=== PATIENT | female | born 1945 | race Caucasian/White ===

== ENCOUNTER → 2023-06-18 10:35 | Outpatient (REF) | payer OTHER, SELFPAY | LOC: HWRAD 10:35 | PROVIDERS: ATTENDING PHYSICIAN Internal Medicine Gastroenterology; FAMILY PHYSICIAN Internal Medicine | DX: R93.5 Abnormal findings on diagnostic imaging of other abdominal regions, including retroperitoneum (principal) | CPT/HCPCS: 74177; Q9967 ==

== ENCOUNTER 2023-07-20 06:14 | Day surgery (SDC) | payer OTHER, SELFPAY ==
[2023-07-20 07:10] VITALS: BMI 22.7
[2023-07-20 07:15] VITALS: BP 144/64
[2023-07-20 07:25] VITALS: BMI 22.7
[2023-07-20 07:37] LABS: Glucose - Point of Care 108 mg/dl (70-99)
[2023-07-20 09:30] VITALS: BP 119/58
[2023-07-20 09:59] VITALS: BP 139/57
== END 2023-07-20 10:17 | disposition home or self-care (01) ==
LOC: SDS 06:14
PROVIDERS: ATTENDING PHYSICIAN Internal Medicine Gastroenterology
DX: Z12.11 Encounter for screening for malignant neoplasm of colon (principal); D12.3 Benign neoplasm of transverse colon; K63.89 Other specified diseases of intestine; K64.8 Other hemorrhoids; K92.1 Melena; K29.70 Gastritis, unspecified, without bleeding; B96.81 Helicobacter pylori [H. pylori] as the cause of diseases classified elsewhere; K21.00 Gastro-esophageal reflux disease with esophagitis, without bleeding; K22.89 Other specified disease of esophagus; K26.9 Duodenal ulcer, unspecified as acute or chronic, without hemorrhage or perforation; K44.9 Diaphragmatic hernia without obstruction or gangrene; K31.89 Other diseases of stomach and duodenum; Z85.038 Personal history of other malignant neoplasm of large intestine; Z98.0 Intestinal bypass and anastomosis status; Z79.01 Long term (current) use of anticoagulants
CPT/HCPCS: 45385; 45380; 43239; 88305; 82962; 88342

== ENCOUNTER → 2023-10-07 07:38 | Outpatient (REF) | payer OTHER, SELFPAY ==
[2023-10-08 12:31] LABS: H. pylori Breath Test Negative (Negative)
[2023-10-09 01:23] LABS: H. pylori Antigen, Fecal Negative (Negative)
== END ==
LOC: REG 07:38
PROVIDERS: ATTENDING PHYSICIAN Internal Medicine Gastroenterology; FAMILY PHYSICIAN Internal Medicine
DX: A04.8 Other specified bacterial intestinal infections (principal)
CPT/HCPCS: 83013; 87338

== ENCOUNTER → 2024-03-09 09:37 | Outpatient (REF) | payer OTHER, SELFPAY | LOC: HWRAD 09:37 | PROVIDERS: ATTENDING PHYSICIAN Internal Medicine | DX: R63.4 Abnormal weight loss (principal) | CPT/HCPCS: 71046 ==

== ENCOUNTER → 2024-04-04 09:38 | Outpatient (REF) | payer OTHER, SELFPAY | LOC: HWWDC 09:38 | PROVIDERS: ATTENDING PHYSICIAN Internal Medicine | DX: Z12.31 Encounter for screening mammogram for malignant neoplasm of breast (principal) | CPT/HCPCS: 77063; 77067 ==

== ENCOUNTER 2024-09-22 13:24 | Inpatient (IN) | payer OTHER, SELFPAY ==
[2024-09-22] VITALS (12 sets, daily range): BP systolic 108–156; BP diastolic 48–98; BMI 20.3
--- NOTE | 2024-09-22 09:07 | ED.GENMED ---
History of Present Illness
General
Chief Complaint: Dizziness
Source: patient and records
Exam Limitations: none
Time Seen by Provider: 09/22/24 08:45
Nursing documentation reviewed up to this point in time: agreed with
History of Present Illness
History of Present Illness:
79-year-old female A-fib on warfarin diabetes presents with dizziness nausea vomiting worse with sitting forward onset last night improved but worsened again today requiring EMS transport no chest pain no shortness of breath no fever or chills
symptoms are better when she is still worse with sitting forward no headache no slurred speech no dark or bloody stools non-smoker nondrinker drinks 3 cups of caffeine a day has had vertigo before but states this is different, gets recurrent upper
respiratory sinus infections
Past History
Past History
ED Past Medical History: Arrthythmia, CAD, Cancer (colon), HTN, Hypercholesterolemia, NIDDM, NH and Other (VT with AICD)
ED Past Surgical History: Cardiac (Stents, Pacer/defibulator)
Social History
Tobacco: Former smoker
Alcohol: None
Drug: None
Personal:
Living: with family
Employment: Retired
Review of Systems
Review of Systems
All Other Systems: Not applicable
Constitutional: Denies fever or fatigue
EENT: Reports other (Sinus congestion)
Respiratory: Reports no symptoms
Cardiac: Reports no symptoms
ABD/GI: Reports nausea and vomiting
: Reports no symptoms
Neurological: Reports dizzy; Denies headache or weakness
Endocrine: Reports no symptoms
Phy Exam
Physical Exam
Physical Exam:
Physical Exam
General: 79-year-old female mild distress clear mental state
Neck: Clear rhinorrhea
Heart: Irregular.
Lungs: no acute respiratory distress. clear bilaterally
Abdomen: Nontender
Neuro: alert and oriented. no focal neurological deficits 2 beats of horizontal nystagmus
Skin: no rash
Psychiatric: well kept. interactive and cooperative
Extremities: no edema.
Course
Orders/Labs/Results
Orders:
Orders
09/22/24 08:45
EKG [Electrocardiogram (*1)] Urgent
Reason for Study: Vertigo / Dizzy
EKG- Treatment ONCE
09/22/24 09:00
CT Head W/o Iv Contrast Urgent
Comment:
Reason For Exam: dizzy vomitign warfarin
0.9% Sodium Chloride 1000 ml [Nss] 1,000 ml IV BOLUS
Ondansetron Injectable [Zofran] 4 mg IV NOW STA
09/22/24 09:01
Basic Metabolic Panel Urgent
Complete Blood Count/With Diff Urgent
PT/INR [Prothrombin Time] Urgent
09/22/24 11:10
Dexamethasone Sod Phosphate [Decadron] 10 mg IV NOW STA
09/22/24 11:11
Amoxicillin [Amoxil] 500 mg PO NOW STA
09/22/24 12:21
0.9% Sodium Chloride 1000 ml [Nss] 1,000 ml IV BOLUS
diazePAM [Valium Injection] 5 mg IV NOW STA
09/22/24 12:22
Physical Therapy Consult [Pt Eval And Treat] Urgent
Activity Level: Out of Bed-Early Mobility
Abnormal Lab Results
09/22/24
09:01
MPV 11.8 H fL
(7.4-10.4)
Absolute Neuts (auto) 7.0 H 10^3/uL
(1.4-6.5)
Absolute Monos (auto) 1.1 H 10^3/uL
(0.1-0.6)
Lymphocytes % 17.4 L %
(20.5-51.1)
Monocytes % 10.3 H %
(1.7-9.3)
PT 19.7 H Sec
(11.4-14.6)
BUN 27 H mg/dl
(7-17)
Glucose 239 H mg/dl
(70-99)
09/22/24 09:01
09/22/24 09:01
Vital Signs
Initial and Last Documented VS:
Initial Vital Signs
BP
156/82
09/22/24 08:43
Last Documented Vital Signs
Temp Pulse Resp BP Pulse Ox
97.7 F 102 24 129/69 94
09/22/24 08:45 09/22/24 10:00 09/22/24 10:00 09/22/24 09:00 09/22/24 10:00
MDM/Problems Addressed
Differential Diagnosis Includes:
Vertigo intracerebral hemorrhage electrolyte abnormality arrhythmia glucose abnormality
MDM/Problems Addressed:
Dizziness
Chronic conditions affecting care: DM, HTN and Arrhythmia
Acute Exacerbation and/or Progression of Chronic Illness: DM, HTN and Arrhythmia
*EKG
Interpretation: abnormal
Comparison EKG: no comparison EKG present
Rate: normal
Rhythm: a-fib
[place]: normal axis
Ischemia: non-specific ST changes
*Procurement Engineer Interpretation
Rate: normal
Interpretation: normal
Heart Rate: 88
Rhythm: a-fib
*Critical Care Note
Total Time (30-74mins, 75-104mins- exclusive of procedures): Not Applicable
Update Note
Update Note:
Update labs noted, BUN up and glucose are up, being treated with IV fluids patient feeling a bit better but still symptomatic only when sitting upright, CT noted, will start on antibiotics short burst of steroids, give number for ENT suspect this
could be sinusitis related dizziness
1220 patient feeling a bit better though nurse reports when she stood up to walk she was very unsteady, symptomatic, will try Valium repeat dose of fluids have PT evaluate if she may need to be admitted
ED Attending Note
-
Portions of this chart may have been created with voice recognition software.� Occasional wrong word or��sound alike� substitutions may have occurred due to the inherent limitations of voice recognition software.
Discharge Plan
Departure
Patient Disposition: Admit
Date of Disposition: 09/22/24
Time of Disposition: 12:25
Admit to: Telemetry
Presentation/result/management discussed w/ accepting MD/DO: Hospitalist
Patient with high blood pressure during this ER visit?: No
Condition: Fair
Discharge Problem:
Intractable vertigo
Prescriptions:
No Action
warfarin [Jantoven] 5 MG tablet
5 mg PO QPM
ezetimibe-simvastatin [Vytorin 10-80] 1 EACH tablet
1 ea PO HS
calcium carbonate [calcium] 500 MG tablet
630 mg PO DAILY
metformin 500 MG tablet
500 mg PO BID@0800,1200
sotalol 80 MG tablet
160 mg PO BID
isosorbide mononitrate 30 MG tablet extended release 24 hr
30 mg PO DAILY
aspirin 81 MG tablet,delayed release (DR/EC)
81 mg PO DAILY
metformin 1,000 MG tablet
1,000 mg PO DAILY@1730
coenzyme O32-yzoustf E 1 CAP capsule
1 cap PO DAILY
hydrochlorothiazide 12.5 MG tablet
25 mg PO DAILY
omega 3-sde-hjs-fish oil [Fish Oil] 1 EACH capsule
1 ea PO BID
multivitamin with folic acid [Tab-A-Mason] 1 TABLET tablet
1 tab PO DAILY
metoprolol succinate 25 MG tablet extended release 24 hr
100 mg PO DAILY@1730
irbesartan 300 MG tablet
300 mg PO DAILY
alpha lipoic acid 300 MG capsule
600 mg PO BID
glimepiride 2 mg Tablet
2 mg PO DAILY
Jardiance 25 mg Tablet
25 mg PO DAILY
polyethylene glycol 3350 [Miralax] 17 gram/dose Powder
DIRECTED
Suflave 178.7-7.3-0.5 gram Recon Soln
PO DIRECTED
simethicone 125 mg Tablet
PO DIRECTED
Referrals:
Desire Lange MD [Family Provider] -
Interventions
Interventions:
*General Assessment Last Done: 09/22/24 08:45
*Neglect/Abuse Screening Last Done: 09/22/24 08:45
*ED COVID-19 Vaccine History Last Done: 09/22/24 08:55
ED- Neurological Assessment Last Done: 09/22/24 08:56
ED- Cardiac Assessment Last Done: 09/22/24 08:56
ED Swallowing Screen Last Done: 09/22/24 11:15
Discharge Date and Time
Print Language: STATELESS
[2024-09-22 09:15] LABS: % Basophils 1.5 % (0-2); % Eosinophils 1.8 % (0-6); % Immature Granulocytes 0.4 % (0-0.5); % Lymphocytes 17.4 % (20.5-51.1); % Monocytes 10.3 % (1.7-9.3); % Neutrophils 68.6 % (42.2-75.2); Absolute Basophils 0.2 10^3/uL (0-0.2); Absolute Eosinophils 0.2 10^3/uL (0-0.7); Absolute Lymphocytes 1.8 10^3/uL (1.2-3.4); Absolute Monocytes 1.1 10^3/uL (0.1-0.6); Hematocrit 44.2 % (37.0-47.0); Hemoglobin 14.6 g/dL (12.0-16.0); Mean Corpuscular Hgb 29.8 pg (27.0-31.0); Mean Corpuscular Volume 90.2 fL (81.0-99.0); Mean Platelet Volume 11.8 fL (7.4-10.4); Nucleated Red Blood Cells % 0 %; Platelet Count 197 10^3/uL (130-400); Red Cell Dist. Width 12.5 % (11.5-14.5); White Blood Cell Count 10.3 10^3/uL (4.8-10.8)
[2024-09-22] MEDS: NSS 1000 IV ×2 (09:17→12:35)
[2024-09-22] MEDS: ZOFRAN 4 MG IV (09:18)
[2024-09-22 09:27] LABS: INR 1.65; PT 19.7 Sec (11.4-14.6)
[2024-09-22 09:31] LABS: Blood Urea Nitrogen 27 mg/dl (7-17); Calcium 9.9 mg/dl (8.4-10.2); Carbon Dioxide 28 mmol/L (22-30); Chloride 107 mmol/L (98-107); Estimated Creatinine Clearance 65 ml/min; Glucose 239 mg/dl (70-99); Sodium 142 mmol/L (135-145); eGFR > 60.00
[2024-09-22] MEDS: DECADRON 10 MG IV (11:26)
[2024-09-22] MEDS: AMOXIL 500 MG PO ×2 (11:26→17:40)
--- NOTE | 2024-09-22 12:26 | HPS.HSE ---
Family Physician
-
Family Physician: Desire Lange
Chief Complaint
-
vertigo
History of Present Illness
79-year-old female A-fib on warfarin diabetes, HTN presents with dizziness nausea vomiting since this morning. she experience this symptoms two nights ago, which resolved its own. this morning, she was not able to get up. it felt like the room was
spinning. she was not able to walk or sit. she vomited once. stated chronic congestion and chronic tinnitus. denied BENAVIDES. denied fever, chills, chest pain, sob. denied abdominal pain,n,v,d. denied dysuria or hematuria.
head CT with no acute findings. Patient received amoxicillin, dexamethasone, Valium, #, Zofran in ER. Admitted for further management.
Medical History
Past Medical History
Past Medical History: Reports Other
Additional Past Medical History:
Cardiomyopathy, ventricular tachycardia, hypertension, HI, dyslipidemia, coronary artery disease, TIA, colon cancer, type 2 diabetes, enlarged thyroid gland, paroxysmal A-fib
Past Surgical History: Reports Other
Additional Past Surgical History:
Collectomy
tonsillectomy
appendectomy
Social History
Tobacco: Non-smoker
Alcohol: None
Drug: None
Personal:
Living: With Family
Family History
Family History: Not pertinent
Allergies / Home Medications
Allergies reflects when Allergies were last updated in [employer].
Home Medications with original date entered in [employer]
Allergy/Medication List:
Allergies
Allergy/AdvReac Type Severity Reaction Status Date / Time
niacin [Niacin] Allergy Rash Verified 09/22/24 08:55
amlodipine AdvReac Shortness Verified 09/22/24 08:55
of Breath
amlodipine besylate AdvReac Shortness Verified 09/22/24 08:55
[From [facility]] of Breath
Home Medications
ezetimibe 10 mg-simvastatin 80 mg tablet (Vytorin) 1 ea PO HS 09/22/10
warfarin 5 mg tablet (Jantoven) 5 mg PO QPM 09/22/10
calcium carbonate (calcium) 630 mg PO DAILY 07/29/14
aspirin 81 mg tablet,delayed release 81 mg PO DAILY 04/14/18
coenzyme G01-scacvuu E 100 mg-100 unit capsule 1 cap PO DAILY 04/14/18
hydrochlorothiazide 12.5 mg tablet 25 mg PO DAILY 04/14/18
isosorbide mononitrate 30 mg tablet,extended release 24 hr 30 mg PO DAILY 04/14/18
metformin 1,000 mg tablet 1,000 mg PO DAILY@1730 04/14/18
metformin 500 mg tablet 500 mg PO BID@0800,1200 04/14/18
multivitamin with folic acid 400 mcg tablet (Tab-A-Mason) 1 tab PO DAILY 04/14/18
omega 7-mvc-xup-fish oil 300 mg-1,000 mg capsule (Fish Oil) 1 ea PO BID 04/14/18
sotalol 80 mg tablet 160 mg PO BID 04/14/18
alpha lipoic acid 300 mg capsule 600 mg PO BID 02/13/20
irbesartan 300 mg tablet 300 mg PO DAILY 02/13/20
metoprolol succinate 25 mg tablet,extended release 24 hr 100 mg PO DAILY@1730 02/13/20
empagliflozin 25 mg tablet (Jardiance) 25 mg PO DAILY 07/20/23
glimepiride 2 mg tablet 2 mg PO DAILY 07/20/23
peg 3350-sod sulf,pcpfs-jjl-yiv 178.7-7.3-0.5-1.12-0.9 gram oral soln (Suflave) ml PO DIRECTED 07/20/23
polyethylene glycol 3350 17 gram/dose oral powder (Miralax) g DIRECTED 07/20/23
simethicone 125 mg tablet mg PO DIRECTED 07/20/23
Review of Systems
-
Constitutional: Reports No Symptoms
EENT: Reports Other (congestion)
Respiratory: Reports No Symptoms
Cardiac: Reports No Symptoms
Abdomen/GI: Reports No Symptoms
: Reports No Symptoms
Musculoskeletal: Reports No Symptoms
Skin: Reports No Symptoms
Neurological: Reports No Symptoms
Endocrine: Reports No Symptoms
Hematologic/Lymphatic: Reports No Symptoms
Psych: Reports No Symptoms
Physical Exam
Vital Signs
Vital Signs
Temp Pulse Resp BP Pulse Ox
97.7 F 102 24 129/69 94
09/22/24 08:45 09/22/24 10:00 09/22/24 10:00 09/22/24 09:00 09/22/24 10:00
Physical Exam
General: Well Developed, Well Nourished and No Apparent Distress
HEENT: NormoCephalic, Moist mucous membranes and Atraumatic
Respiratory: Clear
Cardiac: S1/S2 and Regular Rhythm; No Murmur or Rub
GI: Soft, Non Tender, Non Distended and Normal Bowel Sounds; No Organomegaly
Rectal: Deferred by Provider
Musculoskeletal: No Clubbing, No Cyanosis and No Edema
Skin: No Rash
Neuro: AO x 3 and Nonfocal/grossly intact
Psych: Calm
Laboratory Results
-
09/22/24 09:01
09/22/24 09:01
Laboratory Results
PT 19.7 Sec (11.4-14.6) H 09/22/24 09:01
INR 1.65 09/22/24 09:01
Total Bilirubin Cancelled 09/22/24 09:01
AST Cancelled 09/22/24 09:01
ALT Cancelled 09/22/24 09:01
Alkaline Phosphatase Cancelled 09/22/24 09:01
Data Reviewed
-
CT Scan: Report Reviewed by me
Lab Data: Labs Reviewed by me
Impression/Plan
-
#intractable vertigo likely BPPV vs vestibular neuritis
#acute on chronic sinusitis
-Head CT with the impression of No acute intracranial abnormality.Severe, chronic appearing paranasal sinus disease.
-meclizine prn
-nasal spray
-amoxicillin
-PT/OT
#atrial fib
-EKG with atrial fib
- Metoprolol, sotalol continue
- Warfarin continue
# GERD
- Pantoprazole continued
#tyoe2 DM
- Repaglinide, GERD continued
-Metformin
- Sliding scale
- Carb controlled diet
# Hyperlipidemia
- Zetia, simvastatin continue
# Essential hyper
-irbesartan, HCTZ, isosorbide continue
# DVT prophylaxis
- Warfarin continued
# CODE STATUS
- Full code
[2024-09-22] MEDS: VALIUM INJECTION 5 MG IV (12:29)
--- NOTE | 2024-09-22 13:15 | W.PN.UPDATE ---
Update Note
Progress Note Update
This is an addendum to the H&P written by Giselle Gerber on 09/22/2024.� Patient seen and examined independently with DEMURRAGE MAN.
79-year-old female past medical history of paroxysmal atrial fibrillation on Coumadin, ventricular tachycardia status post ICD, type 2 diabetes, hypertension, CAD status post stents in 1995, TIA, hyperlipidemia, chronic tinnitus in the ears
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
the past 2 days.� She works in daycare.
Vital signs normal.� Labs unremarkable apart from blood sugar of 239.� EKG shows atrial fibrillation with occasional PVCs.� QTc 505.� CT head shows no acute abnormality apart from severe chronic appearing paranasal sinus disease.
Patient given IV fluids and Zofran and diazepam.� Patient was given amoxicillin and dexamethasone in ER for sinusitis.�
Patient with likely viral induced vestibular neuritis versus BPPV.� Check orthostatic vital signs.� Vestibular therapy.� As needed meclizine.� Continue amoxicillin and nasal spray for acute on chronic sinusitis.
[2024-09-22 14:34] LABS: Glucose - Point of Care 153 mg/dl (70-99)
[2024-09-22 16:53] LABS: Glucose - Point of Care 188 mg/dl (70-99)
[2024-09-22] MEDS: COUMADIN 5 MG PO (17:41)
[2024-09-22] MEDS: NOVOLOG FLEXPEN-MODERATE RESISTANCE 1 UNITS SC (17:47)
[2024-09-22] MEDS: TOPROL XL 100 MG PO (17:51)
[2024-09-22 20:31] LABS: Glucose - Point of Care 247 mg/dl (70-99)
[2024-09-22] MEDS: BETAPACE 160 MG PO (21:12)
[2024-09-22] MEDS: LIPITOR 40 MG PO (22:52)
[2024-09-22] MEDS: ZETIA 10 MG PO (22:52)
[2024-09-23] MEDS: AMOXIL 500 MG PO ×2 (00:01→08:46)
[2024-09-23 03:17] VITALS: BP 132/55
[2024-09-23 07:05] VITALS: BP 140/54
[2024-09-23 07:05] LABS: Glucose - Point of Care 143 mg/dl (70-99)
[2024-09-23 07:41] LABS: Glucose - Point of Care 131 mg/dl (70-99)
[2024-09-23 07:47] LABS: INR 2.12; PT 23.9 Sec (11.4-14.6)
--- NOTE | 2024-09-23 07:59 | W.PN.HOSP.TC ---
Today's Communication/Plan
-
Discharge home today
Assessment / Plan
Assessment / Plan
Impression:
79-year-old female A-fib on warfarin, diabetes, HTN presents with dizziness nausea vomiting since this morning. she experience this symptoms two nights ago, which resolved its own. this morning, she was not able to get up. it felt like the room was
spinning. she was not able to walk or sit. she vomited once. stated chronic congestion and chronic tinnitus. denied BENAVIDES. denied fever, chills, chest pain, sob. denied abdominal pain,n,v,d. denied dysuria or hematuria. head CT with no acute findings.
Patient received amoxicillin, dexamethasone, Valium, Zofran in ER. Admitted for further management.
Seen by physical therapy and underwent vestibular therapy with help of her dizziness.
Will be discharged home with outpatient vestibular
Assessment/plan:
Dizziness.
Possible benign positional vertigo.
Could be secondary to labyrinthitis.
Continue meclizine as needed.
If no improvement consider MRI brain.
PT/OT, patient responded well to vestibular treatment,
For outpatient vestibular therapy.
Acute on chronic sinusitis
-Head CT with the impression of No acute intracranial abnormality.Severe, chronic appearing paranasal sinus disease.
-Continue nasal spray
-amoxicillin
Permanent A-fib
-EKG with atrial fib
- Metoprolol, sotalol continue
- Warfarin continue
GERD
- Pantoprazole continued
History of diabetes mellitus
Continue home medication (metformin/repaglinide)
Insulin sliding scale
Diabetic diet
Hemoglobin A1c 8.1
Hyperlipidemia
- Zetia, simvastatin
Essential hypertension
-irbesartan, HCTZ, isosorbide continue
CODE STATUS: Full code
DVT prophylaxis: Coumadin
Diet: DM diet
Disposition: Dc home today.
Total time spent on today's encounter was 65 minutes which included time spent in counseling the patient/family regarding diagnosis and treatment plan as listed above, goals of care, and symptom management. Case was discussed with nursing staff,
specialists, and care coordinators/case management. All labs and imaging personally reviewed by me. Remainder the time spent in detailed review of previous records, lab data, imaging, and other medical provider documentation.
Anticipated Discharge: Today
Subjective/Interval History
-
Date of Service: September 23, 2024
Patient seen and examined at bedside, denies any chest pain or shortness of breath, no abdominal pain, no nausea, no vomiting, no diarrhea or constipation.
Dizziness improved with vestibular therapy.
Objective Data
-
Labs:
Laboratory Results
09/23/24
07:14
PT 23.9 H
INR 2.12
Vital Signs:
Vital Signs
Temp Pulse Resp BP Pulse Ox
98.1 F 61 18 140/54 95
09/23/24 07:05 09/23/24 07:05 09/23/24 07:05 09/23/24 07:05 09/23/24 07:05
Physical Exam
-
General: Well Developed, Well Nourished, No Apparent Distress and Comfortable
HEENT: Normocephalic, Atraumatic, Moist Mucous Membranes, No Ptosis, PERRLA and Nose Appears Normal (Congestion)
Respiratory: Clear to Auscultation and Non Labored Respirations
Cardiac: Regular Rhythm and S1/S2
Breast: Deferred by me
GI: Soft, Nontender, Nondistended and Normal Bowel Sounds
Genito-urinary: No Costovertebral Tender
Musculoskeletal: No Clubbing, No Cyanosis and No Edema
Skin: Warm
Neuro: Awake, Alert, Oriented, AO x 3 and No Motor Deficits
Psych: Calm
Data Reviewed
-
Diagnostic Radiology: Image personally visualized and interpreted and Report Reviewed by me
CT Scan: Image personally visualized and interpreted and Report Reviewed by me
Ultrasound: Image personally visualized and interpreted and Report Reviewed by me
MRI: Image personally visualized and interpreted and Report Reviewed by me
Medical Tests (Nuc Med, Echo etc): Image personally visualized and interpreted and Report Reviewed by me
Labs: Labs Reviewed by me
Old Records: Reviewed
[2024-09-23 08:17] LABS: Glycohemoglobin (HgbA1c) 8.1 % (4.0-5.6)
[2024-09-23] MEDS: AVAPRO 300 MG PO (08:42)
[2024-09-23] MEDS: IMDUR (EXTENDED RELEASE) 30 MG PO (08:42)
[2024-09-23] MEDS: BETAPACE 160 MG PO (08:42)
[2024-09-23] MEDS: AMARYL 2 MG PO (08:43)
[2024-09-23] MEDS: GLUCOPHAGE 1000 MG PO (08:43)
[2024-09-23] MEDS: PROTONIX 40 MG PO (08:43)
[2024-09-23] MEDS: FARXIGA 10 MG PO (08:43)
[2024-09-23] MEDS: ORETIC 25 MG PO (08:43)
[2024-09-23] MEDS: NOVOLOG FLEXPEN-MODERATE RESISTANCE SC (08:47)
[2024-09-23] MEDS: ANTIVERT 25 MG PO (09:18)
[2024-09-23 10:10] VITALS: BP 149/67; BP 164/72; PULSE 67; O2SAT 94
[2024-09-23 10:18] VITALS: BP 149/67; BP 164/72
[2024-09-23 11:05] VITALS: BP 104/50
--- NOTE | 2024-09-23 11:37 | W.DCSUMMARY ---
Discharge Summary
Discharge Data
Date of Admission: 09/22/24
Date of Discharge: 09/23/24
-
Pending Results: No
Hospital Course
Hospital course
79-year-old female A-fib on warfarin, diabetes, HTN presents with dizziness nausea vomiting since this morning. she experience this symptoms two nights ago, which resolved its own. this morning, she was not able to get up. it felt like the room was
spinning. she was not able to walk or sit. she vomited once. stated chronic congestion and chronic tinnitus. denied BENAVIDES. denied fever, chills, chest pain, sob. denied abdominal pain,n,v,d. denied dysuria or hematuria. head CT with no acute findings.
Patient received amoxicillin, dexamethasone, Valium, Zofran in ER. Admitted for further management.
Seen by physical therapy and underwent vestibular therapy with help of her dizziness.
Will be discharged home with outpatient vestibular
During hospitalization patient was treated from the following
Dizziness.
Possible benign positional vertigo.
Could be secondary to labyrinthitis.
Continue meclizine as needed.
If no improvement consider MRI brain.
PT/OT, patient responded well to vestibular treatment,
For outpatient vestibular therapy.
Acute on chronic sinusitis
-Head CT with the impression of No acute intracranial abnormality.Severe, chronic appearing paranasal sinus disease.
-Continue nasal spray
-amoxicillin
Permanent A-fib
-EKG with atrial fib
- Metoprolol, sotalol continue
- Warfarin continue
GERD
- Pantoprazole continued
History of diabetes mellitus
Continue home medication (metformin/repaglinide)
Insulin sliding scale
Diabetic diet
Hemoglobin A1c 8.1
Hyperlipidemia
- Zetia, simvastatin
Essential hypertension
-irbesartan, HCTZ, isosorbide continue
CODE STATUS: Full code
DVT prophylaxis: Coumadin
Diet: DM diet
Disposition: Dc home today.
Total time spent on today's encounter was 40 minutes which included time spent in counseling the patient/family regarding diagnosis and treatment plan as listed above, goals of care, and symptom management. Case was discussed with nursing staff,
specialists, and care coordinators/case management. All labs and imaging personally reviewed by me. Remainder the time spent in detailed review of previous records, lab data, imaging, and other medical provider documentation.
Anticipated Discharge: Today
Discharge Plan
-
Patient Disposition: Home (Routine Discharge)
Discharge Diagnosis/Procedures: Benign positional vertigo.
Acute on chronic sinusitis
Diabetes
Atrial fibrillation.
Diet: 2 Gram Sodium and Diabetic, Carb Controlled
Activity: With assistance and As tolerated
Driving Restrictions: Caution driving if dizziness
Other Services: PT and OT
Referrals:
Desire Lange MD [Family Provider] -
Prescriptions:
New
amoxicillin 500 mg Capsule
500 mg PO Q8 5 Days Qty: 15 0RF
meclizine 25 mg Tablet
25 mg PO Q8H PRN (Reason: vertigo) 7 Days Qty: 21 0RF
(DME) outpatient vestibular therapy
See Rx Instructions .Route .MEDSUPPLY Qty: 1 0RF
Rx Instructions:
Diagnosis:
Dizziness/benign positional vertigo
Continued
warfarin [Jantoven] 5 MG tablet
5 mg PO QPM
ezetimibe-simvastatin [Vytorin 10-80] 1 EACH tablet
1 ea PO HS
metformin 500 MG tablet
1,000 mg PO DAILY@1200
sotalol 80 MG tablet
160 mg PO BID
isosorbide mononitrate 30 MG tablet extended release 24 hr
30 mg PO HS
irbesartan 300 MG tablet
300 mg PO DAILY
glimepiride 2 mg Tablet
2 mg PO DAILY
Jardiance 25 mg Tablet
25 mg PO DAILY
pantoprazole 40 mg Tablet,Delayed Release (Dr/Ec)
40 mg PO DAILY
hydrochlorothiazide 25 mg Tablet
25 mg PO DAILY
metformin 500 mg Tablet
500 mg PO BID@0800,1700
metoprolol succinate [Toprol XL] 100 mg Tablet Extended Release 24 Hr
100 mg PO DAILY
therapeutic multivitamin Tablet
1 tab PO HS
aspirin 81 mg Tablet,Delayed Release (Dr/Ec)
81 mg PO DAILY
calcium carbonate 500 mg calcium (1,250 mg) Tablet
500 mg PO HS
repaglinide 1 mg Tablet
1 mg PO AC
omega 5-tkt-eog-fish oil [Fish Oil] 1,000 (120-180) mg Capsule
1 cap PO BID
alpha lipoic acid 200 mg Capsule
200 mg PO DAILY
coQ10 (ubiquinol) 100 mg Capsule
100 mg PO DAILY
Discharge Orders:
Discharge Patient (As Directed); Ordered 09/23/24
Ordered By: Anabel Olvera
Discharge Date and Time
Print Language: ARABIC
--- NOTE | 2024-09-23 12:35 | CM ---
CM met with patient at bedside to complete IA. She was independently ambulating in room, awaiting her 's arrival so she could go home.
Explained CM role. Patient lives with her in a split level home. There are 6 steps up and then 6 steps down. Patient is independent at baseline with ADLs and ambulation using no device (has cane if ever needed).
Plan: Discharge to home with no identified needs.
== END 2024-09-23 12:30 | disposition home or self-care (01) | DRG 149 ==
LOC: 3 WEST ACU 13:24
PROVIDERS: Emergency Medicine; Registered Nurse; ADMITTING PHYSICIAN Hospitalist; ATTENDING PHYSICIAN General Practice; EMERGENCY PHYSICIAN Emergency Medicine; FAMILY PHYSICIAN Internal Medicine
DX: H81.10 Benign paroxysmal vertigo, unspecified ear (principal); I48.21 Permanent atrial fibrillation; K21.9 Gastro-esophageal reflux disease without esophagitis; E11.9 Type 2 diabetes mellitus without complications; Z79.01 Long term (current) use of anticoagulants; E78.00 Pure hypercholesterolemia, unspecified; I10 Essential (primary) hypertension; J01.90 Acute sinusitis, unspecified; Z87.891 Personal history of nicotine dependence; Z79.899 Other long term (current) drug therapy
CPT/HCPCS: 70450; 80048; 82962; 83036; 85025; 85610; 93005; 96374; 96375; 97112; 97163; 97166; 99285

== ENCOUNTER → 2024-10-03 13:00 | Outpatient (REF) | payer OTHER, SELFPAY | LOC: CLAB 13:00 | PROVIDERS: ATTENDING PHYSICIAN Physician Assistant | DX: J32.8 Other chronic sinusitis (principal) | CPT/HCPCS: 87070; 87147; 87186; 87205 ==

== ENCOUNTER 2025-04-09 06:12 | Day surgery (SDC) | payer OTHER, SELFPAY ==
[2025-04-09] VITALS (8 sets, daily range): BP systolic 96–115; BP diastolic 38–92; BMI 20.8
[2025-04-09] MEDS: NORMOSOL-R/PLASMALYTE-A 1000 IV (07:04)
[2025-04-09 07:11] LABS: Glucose - Point of Care 253 mg/dl (70-99)
[2025-04-09 09:02] LABS: Glucose - Point of Care 180 mg/dl (70-99)
== END 2025-04-09 10:25 | disposition home or self-care (01) ==
LOC: SDS 06:12
PROVIDERS: ATTENDING PHYSICIAN Otolaryngology
DX: J33.9 Nasal polyp, unspecified (principal); Z87.891 Personal history of nicotine dependence
CPT/HCPCS: 31237; 31255; 31267; 82962; 87070; 87147; 87186; 87205; 88311; 88312